=== PATIENT | male | born 1950 | race Caucasian/White ===

== ENCOUNTER 2021-03-13 07:10 | Day surgery (SDC) | payer OTHER, SELFPAY ==
[2021-03-01 10:32] VITALS: BMI 28.3
--- NOTE | 2021-03-08 09:31 | MHC.SHP ---
Pre-Procedural Eval Section A Date of Service: 03/08/21 The patient is an INPATIENT: No The History & Physical has been completed within 30 days and I have reviewed it.: Yes Section B Chief Complaint: cataract Allergies: Allergies Allergy/AdvReac Type Severity Reaction Status Date / Time No Known Allergies Allergy Unverified 05/05/20 15:17 [No Known Allergies*] Plan Diagnosis/Plan: Unchanged I have reviewed the history and physical and performed a pertinent physical examination on my patient. No changes have occurred unless specified.
--- NOTE | 2021-03-10 08:27 | P.CONAN_ITS ---
Documented by User: Tram Starkney 03/10/21 08:30 HPI - Anesthesia Eval Consult details Narrative: 70yo M for Left Cataract Extraction IOL Insertion PCP cleared No previous cataract on record [facility] Past Medical History Medical History (Updated 03/01/21 @ 10:36 by Leonila Dempsey) Anemia Aortic regurgitation Asthma COPD (chronic obstructive pulmonary disease) Hypothyroid IBS (irritable bowel syndrome) Mitral regurgitation Surgical History Surgical History (Updated 03/01/21 @ 10:37 by Leonila Dempsey) H/O colonoscopy Hx of cataract extraction Social History Social History (Updated 03/01/21 @ 10:38 by Leonila Dempsey) Patient Tobacco Use Status: Former Tobacco user Quit Date: 1964 Tobacco use type: Cigarette Advance Directives Information Provided: No Meds Allergies Allergy/AdvReac Type Severity Reaction Status Date / Time amoxicillin Allergy Mild Rash Verified 03/13/21 07:57 Home Medications Medication Instructions Recorded Confirmed Last Taken Type albuterol sulfate [Proventil HFA] 2 puff INHALATION Q4-6H PRN 03/01/21 03/01/21 03/13/21 History ascorbic acid (vitamin C) [Vitamin 500 mg PO DAILY 03/01/21 03/01/21 Unknown History C] budesonide-formoterol [Symbicort] 2 puff INHALATION BID 03/01/21 03/01/21 03/13/21 History cholecalciferol (vitamin D3) 25 mcg PO DAILY 03/01/21 03/01/21 Unknown History [Vitamin D3] cyanocobalamin (vitamin B-12) 1,000 mcg IM QMONTH 03/01/21 03/01/21 Unknown History [Vitamin B-12] ferrous sulfate 325 mg PO Q2D 03/01/21 03/01/21 Unknown History fluticasone propionate [Flonase] 1 spray INTRANASAL DAILY 03/01/21 03/01/21 Unknown History levothyroxine 175 mcg PO DAILY 03/01/21 03/01/21 03/13/21 History montelukast [Singulair] 10 mg PO BEDTIME 03/01/21 03/01/21 Unknown History multivitamin 1 tab PO DAILY 03/01/21 03/01/21 Unknown History sildenafil 50 mg PO DAILY PRN 03/01/21 03/01/21 Unknown History tiotropium bromide [Spiriva 2 puff INHALATION DAILY 03/01/21 03/01/21 03/13/21 History Respimat] doxycycline monohydrate 1 cap PO BID 03/13/21 03/13/21 03/13/21 History Exam Exam Date and Time: March 10, [id number] Height,Weight and Vital Signs: Height 5 ft 9 in Weight 87.1 kg Assessment and Plan Assessment Anesthesia Assessment: Chart Reviewed Documented by User: Paula Redding 03/13/21 08:31 [facility] Past Medical History Medical History (Updated 03/01/21 @ 10:36 by Leonila Dempsey) Anemia Aortic regurgitation Asthma COPD (chronic obstructive pulmonary disease) Hypothyroid IBS (irritable bowel syndrome) Mitral regurgitation Surgical History Surgical History (Updated 03/01/21 @ 10:37 by Leonila Dempsey) H/O colonoscopy Hx of cataract extraction Social History Social History (Updated 03/01/21 @ 10:38 by Leonila Dempsey) Patient Tobacco Use Status: Former Tobacco user Quit Date: 1965 Tobacco use type: Cigarette Advance Directives Information Provided: No Meds Allergies Allergy/AdvReac Type Severity Reaction Status Date / Time amoxicillin Allergy Mild Rash Verified 03/13/21 07:57 Home Medications Medication Instructions Recorded Confirmed Last Taken Type albuterol sulfate [Proventil HFA] 2 puff INHALATION Q4-6H PRN 03/01/21 03/01/21 03/13/21 History ascorbic acid (vitamin C) [Vitamin 500 mg PO DAILY 03/01/21 03/01/21 Unknown History C] budesonide-formoterol [Symbicort] 2 puff INHALATION BID 03/01/21 03/01/21 03/13/21 History cholecalciferol (vitamin D3) 25 mcg PO DAILY 03/01/21 03/01/21 Unknown History [Vitamin D3] cyanocobalamin (vitamin B-12) 1,000 mcg IM QMONTH 03/01/21 03/01/21 Unknown History [Vitamin B-12] ferrous sulfate 325 mg PO Q2D 03/01/21 03/01/21 Unknown History fluticasone propionate [Flonase] 1 spray INTRANASAL DAILY 03/01/21 03/01/21 Unknown History levothyroxine 175 mcg PO DAILY 03/01/21 03/01/21 03/13/21 History montelukast [Singulair] 10 mg PO BEDTIME 03/01/21 03/01/21 Unknown History multivitamin 1 tab PO DAILY 03/01/21 03/01/21 Unknown History sildenafil 50 mg PO DAILY PRN 03/01/21 03/01/21 Unknown History tiotropium bromide [Spiriva 2 puff INHALATION DAILY 03/01/21 03/01/21 03/13/21 History Respimat] doxycycline monohydrate 1 cap PO BID 03/13/21 03/13/21 03/13/21 History Exam Airway Mallampati Class: III (Multiple caps throughout,sip water with med) TM Dist: >3cm Neck ROM: Full Heart: rrr Lungs: cta Assessment and Plan Assessment Anesthesia Assessment: Anesthesia Plan Discussed and Chart Reviewed Final Anesthetic Review NPO: Yes ASA Class: III Final Preanesthetic Review: No Changes in Pt Med Stat and Consent Obtained/Reviewed Patient Risk: Intermediate Procedure Risk: Intermediate Anesthetic Plan Anesthetic Plan: MAC: Disposition: Standard PACU
[2021-03-13 07:15] VITALS: BP 154/64; PULSE 55; RESP 18; TEMP 36.6; O2SAT 98
[2021-03-13] MEDS: Tropicamide 1 % Ophth Sol 3 ML BTL 1 DROP EYE-LEFT ×3 (07:32→07:33)
[2021-03-13] MEDS: Tetracaine HCl/PF 0.5% Oph Sol 4 ML DROPS 1 DROP EYE-LEFT (07:32)
[2021-03-13] MEDS: Phenylephrine HCL 2.5% Oph SoL 2 ML BOTTLE 1 DROP EYE-LEFT ×3 (07:33)
[2021-03-13] MEDS: Lactated Ringers 500 ML 50 ML IV (07:41)
--- NOTE | 2021-03-13 09:13 | HO.PNOPHT ---
Ophthalmology Procedure Procedure Date of Service: 03/13/21 Ophthalmology Viscoelastic: Healon Duet Dual Pack Pro Ophthalmology Lenses: TECNIS [id number] (18.5) Procedure Notes: PREOPERATIVE DIAGNOSIS: Decreased visual acuity left eye secondary to cataract POSTOPERATIVE DIAGNOSIS: Same PROCEDURE: Left cataract extraction with intraocular lens insertion SURGEON: Niranjan Michele M.D. ANESTHESIA: Topical/MAC ESTIMATED BLOOD LOSS: None COMPLICATIONS: None After obtaining informed consent, the patient was brought to the operation room suite and placed in the supine position. After adequate sedation per anesthesia, topical drops of Tetracaine were given to the left eye. The eye was then prepped and draped in the usual sterile fashion. The operating room microscope was then positioned over the operative eye and a lid speculum placed. A paracentesis was created. Viscoelastic was then instilled into the anterior chamber. A three plane incision was then created temporally, utilizing a 2.85 mm keratome. Capsulotomy forceps were then utilized to create a circular tear capsulotomy. Hydrodissection and hydrodelineation were carried out until adequate mobilization of the nucleus occurred. Phacoemulsification was then utilized to remove the dense central nucleus followed by removal of the cortical material utilizing the automated aspiration irrigation unit. Viscoat elastic was instilled into the posterior capsular bag followed by placement of a posterior chamber intraocular lens without difficulty. The residual Viscoat elastic was then removed utilizing the automated IA machine. The wound was check and found to be watertight. The patient tolerated the procedure well and the lid speculum was removed. Intracameral injection of Vigamox 0.1 mL followed by a subtenon injection of Kenalog-40 0.2 mL were administered. The patient will be seen in the a.m.
[2021-03-13 09:37] VITALS: BP 167/69; PULSE 54; RESP 14; TEMP 36.3; O2SAT 96
== END 2021-03-13 09:46 | disposition home or self-care (01) ==
PROVIDERS: PCP Internal Medicine; Visit Provider Ophthalmology
PROC: (CPT 66985; principal; 2021-03-13 09:20)
DX: H25.12 Age-related nuclear cataract, left eye (principal); H54.7 Unspecified visual loss; Z96.1 Presence of intraocular lens; D64.9 Anemia, unspecified; J44.9 Chronic obstructive pulmonary disease, unspecified; E03.9 Hypothyroidism, unspecified; Z79.51 Long term (current) use of inhaled steroids; Z79.899 Other long term (current) drug therapy
CPT/HCPCS: 66984; J2250; J3010; J3300; V2632

== ENCOUNTER 2021-04-28 06:58 | Day surgery (SDC) | payer OTHER, SELFPAY ==
[2021-04-21 15:50] VITALS: BMI 28.3
--- NOTE | 2021-04-27 09:28 | HO.ANESPROP2 ---
Documented by User: Tram Edward NP 04/27/21 11:02 HPI - Anesthesia Eval Consult details Narrative: 70yo M for Colonoscopy (02/2021 medically cleared under any type of anesthesia for cataract procedure) [facility] Past Medical History Medical History (Updated 04/27/21 @ 11:02 by Tram Edward NP) Anemia Aortic regurgitation Ascending aorta dilation Asthma COPD (chronic obstructive pulmonary disease) Hypothyroid IBS (irritable bowel syndrome) Mitral regurgitation Surgical History Surgical History (Updated 04/21/21 @ 15:30 by Rosenda Verdin, SEBASTIAN) H/O colonoscopy Hx of cataract extraction Hx of cataract extraction Social History Social History (Updated 03/01/21 @ 10:38 by Leonila Dempsey RN) Patient Tobacco Use Status: Former Tobacco user Quit Date: 1964 Tobacco use type: Cigarette Use of substances other than those prescribed or required for medical reasons: No Have you been hit, kicked, punched, or otherwise hurt by someone within the past year? If so, by whom?: No Are you DNR?: No Advance Directives: No Advance Directives Information Provided: Yes Recently lost weight without trying: No Nutrition Risks: No Nutritional Risk Meds Allergies Allergy/AdvReac Type Severity Reaction Status Date / Time amoxicillin Allergy Mild Rash Verified 03/13/21 07:57 Home Medications Medication Instructions Recorded Confirmed Last Taken Type albuterol sulfate 90 mcg/actuation 2 puff INHALATION Q4-6H PRN 03/01/21 03/01/21 04/28/21 History aerosol inhaler (Proventil HFA) ascorbic acid (vitamin C) 500 mg 500 mg PO DAILY 03/01/21 03/01/21 Unknown History tablet (Vitamin C) budesonide-formoterol HFA 160 2 puff INHALATION BID 03/01/21 03/01/21 03/13/21 History mcg-4.5 mcg/actuation aerosol inhaler (Symbicort) cholecalciferol (vitamin D3) 25 25 mcg PO DAILY 03/01/21 03/01/21 Unknown History mcg (1,000 unit) capsule (Vitamin D3) cyanocobalamin (vitamin B-12) 1,000 mcg IM QMONTH 03/01/21 03/01/21 Unknown History 1,000 mcg/mL injection solution ferrous sulfate 325 mg (65 mg 325 mg PO Q2D 03/01/21 03/01/21 Unknown History iron) tablet fluticasone propionate 50 1 spray INTRANASAL DAILY 03/01/21 03/01/21 04/28/21 History mcg/actuation nasal spray,suspension levothyroxine 175 mcg tablet 175 mcg PO DAILY 03/01/21 03/01/21 04/28/21 History montelukast 10 mg tablet 10 mg PO BEDTIME 03/01/21 03/01/21 Unknown History (Singulair) multivitamin 1 tab PO DAILY 03/01/21 03/01/21 Unknown History sildenafil 50 mg tablet 50 mg PO DAILY PRN 03/01/21 03/01/21 Unknown History tiotropium bromide 2.5 2 puff INHALATION DAILY 03/01/21 03/01/21 03/13/21 History mcg/actuation mist for inhalation (Spiriva Respimat) doxycycline monohydrate 100 mg 1 cap PO BID 03/13/21 03/13/21 03/13/21 History capsule Exam Exam Date and Time: April 27, [id number] Height,Weight and Vital Signs: Height 5 ft 9 in Weight 87.09 kg Documented by User: Jarrett Carty MD 04/28/21 07:31 [facility] Past Medical History Medical History (Updated 04/27/21 @ 11:02 by Tram Edward NP) Anemia Aortic regurgitation Ascending aorta dilation Asthma COPD (chronic obstructive pulmonary disease) Hypothyroid IBS (irritable bowel syndrome) Mitral regurgitation Surgical History Surgical History (Updated 04/21/21 @ 15:30 by Rosenda Verdin RN) H/O colonoscopy Hx of cataract extraction Hx of cataract extraction Social History Social History (Updated 03/01/21 @ 10:38 by Leonila Dempsey RN) Patient Tobacco Use Status: Former Tobacco user Quit Date: 1965 Tobacco use type: Cigarette Use of substances other than those prescribed or required for medical reasons: No Have you been hit, kicked, punched, or otherwise hurt by someone within the past year? If so, by whom?: No Are you DNR?: No Advance Directives: No Advance Directives Information Provided: Yes Recently lost weight without trying: No Nutrition Risks: No Nutritional Risk Meds Allergies Allergy/AdvReac Type Severity Reaction Status Date / Time amoxicillin Allergy Mild Rash Verified 03/13/21 07:57 Home Medications Medication Instructions Recorded Confirmed Last Taken Type albuterol sulfate 90 mcg/actuation 2 puff INHALATION Q4-6H PRN 03/01/21 03/01/21 04/28/21 History aerosol inhaler (Proventil HFA) ascorbic acid (vitamin C) 500 mg 500 mg PO DAILY 03/01/21 03/01/21 Unknown History tablet (Vitamin C) budesonide-formoterol HFA 160 2 puff INHALATION BID 03/01/21 03/01/21 03/13/21 History mcg-4.5 mcg/actuation aerosol inhaler (Symbicort) cholecalciferol (vitamin D3) 25 25 mcg PO DAILY 03/01/21 03/01/21 Unknown History mcg (1,000 unit) capsule (Vitamin D3) cyanocobalamin (vitamin B-12) 1,000 mcg IM QMONTH 03/01/21 03/01/21 Unknown History 1,000 mcg/mL injection solution ferrous sulfate 325 mg (65 mg 325 mg PO Q2D 03/01/21 03/01/21 Unknown History iron) tablet fluticasone propionate 50 1 spray INTRANASAL DAILY 03/01/21 03/01/21 04/28/21 History mcg/actuation nasal spray,suspension levothyroxine 175 mcg tablet 175 mcg PO DAILY 03/01/21 03/01/21 04/28/21 History montelukast 10 mg tablet 10 mg PO BEDTIME 03/01/21 03/01/21 Unknown History (Singulair) multivitamin 1 tab PO DAILY 03/01/21 03/01/21 Unknown History sildenafil 50 mg tablet 50 mg PO DAILY PRN 03/01/21 03/01/21 Unknown History tiotropium bromide 2.5 2 puff INHALATION DAILY 03/01/21 03/01/21 03/13/21 History mcg/actuation mist for inhalation (Spiriva Respimat) doxycycline monohydrate 100 mg 1 cap PO BID 03/13/21 03/13/21 03/13/21 History capsule Exam Airway Mallampati Class: II TM Dist: >3cm Neck ROM: Full
[2021-04-28 07:11] VITALS: BP 142/72; PULSE 54; RESP 18; TEMP 36.1; O2SAT 97
[2021-04-28] MEDS: Sodium Phosphate,Mono-Dibasic 133 ML ENEMA PR ×2 (07:27→07:47)
[2021-04-28] MEDS: Lactated Ringers 1,000 ML 100 ML IVCONT (07:46)
--- NOTE | 2021-04-28 07:47 | PC.NURSE ---
pt recieved [address] cano first results brownish to tna second yellow
[2021-04-28 09:15] VITALS: BP 102/62; PULSE 50; RESP 16; TEMP 36.1; O2SAT 99
--- NOTE | 2021-04-28 09:18 | P.BOP_ITS ---
Brief Operative Note Date of Service: 04/28/21 Pre-op diagnosis: Screening Post-op diagnosis: other (Int/Ext Hemorrhoids, Diverticulosis) Procedure: Colonoscopy to cecum and TI Surgeon: Adrian Corea Anesthesia: MAC Was an Workers [employer] Par[employer] used for this Procedure?: No Estimated blood loss (mL): 2.0 Pathology: none sent Condition: stable Disposition: PACU
[2021-04-28 09:30] VITALS: BP 103/70; PULSE 55; RESP 16; TEMP 36.1; O2SAT 98
--- NOTE | 2021-04-28 09:54 | OP_ITS ---
SURGEON: Adrian Corea MD INDICATIONS: The patient presents for evaluation of colorectal cancer screening. Full consent has been obtained from him for this, including risks of bleeding and perforation. PREOPERATIVE DIAGNOSIS: Colorectal cancer screening. POSTOPERATIVE DIAGNOSIS: PROCEDURE PERFORMED: Colonoscopy to cecum and terminal ileum. ESTIMATED BLOOD LOSS: COMPLICATIONS: ANESTHESIA: Monitored anesthesia care. ASSISTANTS: SPECIMENS: POSTOPERATIVE DIAGNOSES: Colorectal cancer screening, internal and external hemorrhoids, diverticulosis. DESCRIPTION OF PROCEDURE: The patient was placed in the left lateral decubitus position. The digital rectal exam revealed a tight anal sphincter and some external hemorrhoidal tissue. There was some blood on the examining glove. The Olympus video pediatric colonoscope was entered into the rectum and advanced easily to the cecum. Once in the cecum, I did identify normal-appearing cecal pouch with appendiceal orifice and a normal-appearing ileocecal valve. The terminal ileum was cannulated and appeared normal. The scope was withdrawn back in the colon. The entire cecum and ileocecal valve appeared normal. The scope was slowly withdrawn assessing all mucosal surfaces carefully. Preparation was excellent. I did not visualize any sign of polyps, colitis, nor angiodysplasia. There was a mild amount of sigmoid diverticulosis. In the rectum, scope was retroflexed visualizing internal hemorrhoids, but no other pathology. The rectal mucosa appeared normal. Scope was straightened out and withdrawn from the patient. He tolerated the procedure well and was returned to the recovery area in stable condition. IMPRESSION: 1. Internal and external hemorrhoids. 2. Tight anal sphincter. 3. Diverticulosis. PLAN: Given today's negative exam and negative family history, I would recommend a repeat colonoscopy in 10 years for further screening, although at that point, he would be close to 81-year-old and we would need to take his clinical condition into account. He will otherwise see me on a p.r.n. basis. He could use [id number] cream or suppository for the hemorrhoids as needed. They do not seem to be bothering him, but if they were to bother him, he would need a referral to Dr. Claytno for evaluation. This has been discussed with his . MD DAVEY Carlos/FRANSICO / [id number]
== END 2021-04-28 10:00 | disposition home or self-care (01) ==
PROVIDERS: PCP Internal Medicine; Visit Provider Internal Medicine
PROC: 0DJD8ZZ Inspection of Lower Intestinal Tract, Via Natural or Artificial Opening Endoscopic (ICD-10-PCS; CPT 45378; principal; 2021-04-28 08:20)
DX: Z12.11 Encounter for screening for malignant neoplasm of colon (principal); K57.30 Diverticulosis of large intestine without perforation or abscess without bleeding; K64.8 Other hemorrhoids; K64.4 Residual hemorrhoidal skin tags
CPT/HCPCS: G0121

== ENCOUNTER 2023-07-23 | Outpatient (RCR) | payer OTHER, SELFPAY | END 2023-08-14 17:00 | disposition home or self-care (01) | LOC: HO.WCC | PROVIDERS: PCP Internal Medicine; Visit Provider Physician Assistant | DX: L97.822 Non-pressure chronic ulcer of other part of left lower leg with fat layer exposed (principal); I87.2 Venous insufficiency (chronic) (peripheral); Z79.891 Long term (current) use of opiate analgesic; Z79.899 Other long term (current) drug therapy | CPT/HCPCS: 11042; 99212 ==